=== PATIENT | male | born 1940 | race Caucasian/White ===

== ENCOUNTER → 2019-01-20 | Outpatient (CLI) | payer OTHER ==
[~2019-01-20] MED LIST: ASPIRIN81 M2 PO; CARISOPRODOL 3350 MG PO; CELESTONE30 MG/5 ML IJ; CIPRO500 MG PO; COLACE100 MG PO; COREG3.125 MG PO; COREG6.25 MG PO; COUMADIN 4 MG TA4 M1 PO; DILTIAZEM 24HR180 M1 PO; FLOMAX0.4 MG PO; HYDROCODONE-APA1 TA1 PO; KENALOG-4040 MG/ML IM; LEVOTHYROXIN0.137 M1 PO; LIPITOR10 MG PO; MAXZIDE-25 MG1 EACH PO; VALIUM5 MG PO; ZANTAC 150MG T150 MG PO
== END ==
LOC: RAD 11:19
DX: Z01.818 Encounter for other preprocedural examination (principal); J98.4 Other disorders of lung

== ENCOUNTER → 2019-05-10 | Outpatient (CLI) | payer OTHER | LOC: RAD 14:43 | DX: M47.22 Other spondylosis with radiculopathy, cervical region (principal); M43.13 Spondylolisthesis, cervicothoracic region; M53.82 Other specified dorsopathies, cervical region ==

== ENCOUNTER → 2020-07-08 | Outpatient (CLI) | payer OTHER | LOC: ULTRA 12:37 | PROVIDERS: ATTEND Neuromusculoskeletal Medicine & OMM | DX: M79.89 Other specified soft tissue disorders (principal) ==

== ENCOUNTER 2020-07-12 16:49 | Emergency (ER) | payer OTHER ==
[~2020-07-12] VITALS: Ht 177.8 cm; Wt 77.1 kg
[2020-07-12 18:40] LABS: HEMATOCRIT 33.7 % (42.0-52.0); MCH 31.1 pg (26.0-34.0); MCHC 32.8 g/dL (28.0-37.0); RBC 3.55 mil/uL (4.50-6.00); RDW 14.6 % (10.5-14.5); WBC 10.3 thou/uL (4.0-11.0)
[2020-07-12 18:51] LABS: CALCIUM 9.4 mg/dL (8.5-10.1); POTASSIUM 4.4 mmol/L (3.5-5.1)
[2020-07-12 18:54] LABS: APTT 37.8 Seconds (24.5-32.8); INR 1.5; PROTIME 14.9 Seconds (9.3-11.4)
[2020-07-12] MEDS ORDERED: PERCOCET 5-3251 EACH PO (20:11)
[2020-07-12] MEDS ORDERED: DULCOLAX STOOL100 M1 PO (20:11)
[2020-07-12 21:06] VITALS: BP 140/69
== END 2020-07-12 21:06 | disposition home or self-care (01) ==
LOC: ER 16:49
PROVIDERS: Emergency Medicine
DX: S80.11XA Contusion of right lower leg, initial encounter (principal); K21.9 Gastro-esophageal reflux disease without esophagitis; I48.91 Unspecified atrial fibrillation; I10 Essential (primary) hypertension; Z90.89 Acquired absence of other organs; Z79.899 Other long term (current) drug therapy; Z87.891 Personal history of nicotine dependence; Z88.0 Allergy status to penicillin; X58.XXXA Exposure to other specified factors, initial encounter; Y93.89 Activity, other specified; Y92.89 Other specified places as the place of occurrence of the external cause; Y99.8 Other external cause status

== ENCOUNTER 2021-09-15 14:34 | Inpatient (IN) | payer OTHER ==
[~2021-09-15] VITALS: Ht 177.8 cm; Wt 83.5 kg
[~2021-09-15 14:34] MED LIST changes: +DULCOLAX STOOL100 M1 PO; +PERCOCET 5-3251 EACH PO
[2021-09-15 14:40] VITALS: BP 111/66
[2021-09-15 15:00] LABS: MCHC 32.2 g/dL (28.0-37.0); MCV 93.3 fL (80.0-100.0); RBC 1.96 mil/uL (4.50-6.00); RDW 15.4 % (10.5-14.5); WBC 11.5 thou/uL (4.0-11.0)
[2021-09-15 15:02] LABS: HEMATOCRIT 18.3 % (42.0-52.0)
[2021-09-15 15:03] LABS: HEMOGLOBIN 5.9 gm/dL (14.0-18.0)
[2021-09-15 15:12] LABS: CALCIUM 8.5 mg/dL (8.5-10.1); CREATININE 1.3 mg/dL (0.7-1.3); POTASSIUM 4.5 mmol/L (3.5-5.1)
[2021-09-15] MEDS ORDERED: XARELTO20 MG PO (15:38)
[2021-09-15] MEDS ORDERED: SYNTHROID100 MC1 PO (15:39)
[2021-09-15] MEDS ORDERED: PROSCAR 5MG TABL5 M1 PO (15:40)
[2021-09-15] MEDS ORDERED: TRAMADOL 50 MG50 MG PO (15:41)
[2021-09-15 17:07] LABS: APTT 20.8 Seconds (24.5-32.8); INR 1.11
[2021-09-15 19:14] VITALS: BP 112/60
[2021-09-15 20:02] VITALS: BP 125/65; BP 132/57; BP 147/57
[2021-09-15 23:15] LABS: HEMATOCRIT 17.9 % (42.0-52.0); HEMOGLOBIN 5.8 gm/dL (14.0-18.0)
[2021-09-15 23:34] VITALS: BP 110/64; BP 119/60; BP 124/59; BP 125/62
[2021-09-16] VITALS (7 sets, daily range): BP systolic 103–123; BP diastolic 54–69
[2021-09-16 05:05] LABS: CALCIUM 7.8 mg/dL (8.5-10.1); MAGNESIUM 1.9 mg/dL (1.8-2.4); POTASSIUM 3.8 mmol/L (3.5-5.1)
[2021-09-16 05:21] LABS: HEMOGLOBIN 6.5 gm/dL (14.0-18.0); MCH 31.4 pg (26.0-34.0)
[2021-09-16 05:23] LABS: ABSOLUTE NEUTROPHILS 6.9 thou/uL (1.4-8.2); BASOPHILS 0.6 % (0.0-2.0); EOSINOPHILS 0.3 % (0.0-3.0); LYMPHOCYTES 9.9 % (24.0-44.0); MCHC 33.6 g/dL (28.0-37.0); MCV 93.4 fL (80.0-100.0); MONOCYTES 8.5 % (1.0-8.0); POLYS 80.7 % (36.0-66.0); RBC 2.08 mil/uL (4.50-6.00); RDW 15.2 % (10.5-14.5); WBC 8.6 thou/uL (4.0-11.0)
[2021-09-16 05:26] LABS: PLATELET COUNT 201 thou/uL (150-400)
[2021-09-16 05:27] LABS: HEMATOCRIT 19.4 % (42.0-52.0)
--- NOTE | 2021-09-16 07:52 | EKG ---
[place] [address] [place] [address] ELECTROCARDIOGRAM REPORT Name: ASIF GOLDBERG Room #: 170-2 ADM IN M.R.#: [id number] Admission: 09/15/21 Attend Phys: Sherice Cabrera Discharge: Date of : 40 Report #: [id number] [facility] ED Test Date: 2021-09-15 Test Time: 14:44:05 Pat Name: ASIF GOLDBERG Department: Room: 170 2 Gender: M Credit Risk Officer: [place] : 1940 Requested By: Bri Tarango Order Number: [id number] MD: Camilo Allison Measurements Intervals [place] Rate: 89 P: HI: QRS: 49 QRSD: 143 T: 257 QT: 398 QTc: 485 Interpretive Statements Atrial fibrillation Right bundle branch block ST depr, consider ischemia, inferior and lateral leads Compared to ECG 03/07/2014 10:51:20 ST depression is now present Electronically Signed On 09-16-2021 7:52:16 SERVICES EXECUTIVE by Camilo Allison [email or web address] <ELECTRONICALLY SIGNED> By: Camilo Allison MD, [facility] 09/16/21 [id number] Camilo Allison MD, [facility] /EPI
[2021-09-16 08:25] LABS: % SATURATION 10 % (20-39); IRON 29 ug/dL (65-175); TIBC 305 ug/dL (250-450)
[2021-09-16 09:10] LABS: FERRITIN 10 ng/mL (26-388)
--- NOTE | 2021-09-16 09:17 | NUR ---
Pt PO morning meds held due to patient being NPO at this time
--- NOTE | 2021-09-16 11:43 | NUR ---
Pt going to surgery at this time
--- NOTE | 2021-09-16 17:04 | NUR ---
[age] OLD MALE ADMITTED TO WEST ROOM 463. PT WAS BROUGHT INTO THE ER PER DUE CONSIPATION, WEAKNESS AND DARK TARY STOOLS. PT HAD EGD TODAY. VSS. PT DENIES PAIN/SOA AT THIS TIME. PT UP WITH STANDBY ASSIST. PT WUFE AT BEDSIDE. WILL CONTINUE TO MONITOR.
[2021-09-17] VITALS (8 sets, daily range): BP systolic 98–112; BP diastolic 53–68
--- NOTE | 2021-09-17 05:15 | NUR ---
PATIENT AOX4 MAKES NEEDS KNOWN. PATIENT AMBULATES TO THE BATHROOM WITH STEADY GAITS. PATIENT NEEDS MINIMUM ASSISTANCE WITH ADL, BED MOBILITY, TRANSFER AND TOILETING. FALL PRECAUTION IN PLACE.PATIENT IN BED ASLEEP AT THIS TIME BREATHING REGULAR AND UNLABOURED.
[2021-09-17 05:52] LABS: HEMOGLOBIN 6.6 gm/dL (14.0-18.0)
[2021-09-17 05:53] LABS: MCH 30.4 pg (26.0-34.0); MCHC 33.4 g/dL (28.0-37.0); MCV 90.8 fL (80.0-100.0); RBC 2.18 mil/uL (4.50-6.00); RDW 17.2 % (10.5-14.5); WBC 7.6 thou/uL (4.0-11.0)
[2021-09-17 05:58] LABS: HEMATOCRIT 19.8 % (42.0-52.0)
[2021-09-17 06:21] LABS: CALCIUM 7.9 mg/dL (8.5-10.1); POTASSIUM 3.6 mmol/L (3.5-5.1)
--- NOTE | 2021-09-17 11:38 | NUR ---
HGB 6.6, ORDERS ARE TO INFUSE BLOOD UNTIL REACHES 7.0 DR. CHRISTOPHER HAD CALLED TO SEE IF PATIENT WAS RECIEVING BLOOD. AT 0940 BLOOD WAS STARTED, PATIENT MONITORED FOR THE FIRST 15 MINUTES WITH NO REACTIONS. VS CHARTED.
--- NOTE | 2021-09-17 14:47 | NUR ---
PT ADMITTED RELATED TO SYMPTOMATIC ANEMIA, ANTICOAGULATED, GI BLEED. CM REVIEWED CHART AND SPOKE WITH CARE TEAM. CM MET WITH PT AND SPOUSE AT BEDSIDE THIS DAY. PT APPEARED TO BE A&O X4. CM ROLE INTRODUCED. 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 PT INDICATED NO PRIOR USE OF ASSISTIVE DEVICES. THEY HAVE A CANE AND A FWW IN THE HOME. PT INDICATED NO HH HX. PT HAD BEEN A PT OF DR. KOROMA AND IS NOW SEEING STATION INSPECTOR COMFORT FRIED. PT GOES TO [facility] FOR ALL OTHER CARES. PT INDICATED HE PLANS TO RETURN HOME ONCE MEDICALLY STABLE. PT GO 1 UNIT PRBC THIS DAY. CM FOLLOWING REGARDING DC PLANNING.
[2021-09-17 17:31] LABS: HEMATOCRIT 24.3 % (42.0-52.0); HEMOGLOBIN 7.9 gm/dL (14.0-18.0); MCH 29.6 pg (26.0-34.0); MCHC 32.5 g/dL (28.0-37.0); RBC 2.67 mil/uL (4.50-6.00); WBC 8.7 thou/uL (4.0-11.0)
[2021-09-18 01:16] VITALS: BP 92/55
--- NOTE | 2021-09-18 05:00 | NUR ---
Pt. rested quietly during the night when checked on during frequent rounds. He requested something to help him sleep last evening. Fatemeh NOONAN called and notified with new orders (see cpoe). Pt. ambulated to the bathroom with mini- mal assistance. Bed alarm is on.
[2021-09-18 05:29] VITALS: BP 111/61
[2021-09-18 06:24] LABS: HEMATOCRIT 23.3 % (42.0-52.0); HEMOGLOBIN 7.8 gm/dL (14.0-18.0); MCH 30.2 pg (26.0-34.0); MCHC 33.5 g/dL (28.0-37.0); MCV 90.2 fL (80.0-100.0); RBC 2.58 mil/uL (4.50-6.00); RDW 17.2 % (10.5-14.5); WBC 6.2 thou/uL (4.0-11.0)
[2021-09-18 06:42] LABS: POTASSIUM 3.5 mmol/L (3.5-5.1)
[2021-09-18 07:52] VITALS: BP 127/73
--- NOTE | 2021-09-18 15:21 | NUR ---
CARE TEAM INDICATING THAT PT IS PROGRESSING TOWARD GOAL OF DISCHARGING HOME. PT AND OT ORDERED TO ASSESS PT THIS DAY. CARE TEAM WERE INDICATING PROBABLE DC BACK HOME TOMORROW. CM FOLLOWOWING REGARDING DC PLANNING.
[2021-09-18 16:33] VITALS: BP 94/53
[2021-09-18 19:34] VITALS: BP 128/78
[2021-09-19 00:23] VITALS: BP 107/52
--- NOTE | 2021-09-19 05:01 | NUR ---
Pt. rested quietly at intervals during the night when checked on during frequent rounds. Meds given for sleep and c/o headache (see emar).
[2021-09-19 05:06] VITALS: BP 105/67
[2021-09-19 06:17] LABS: HEMATOCRIT 23.2 % (42.0-52.0); HEMOGLOBIN 7.6 gm/dL (14.0-18.0); MCH 29.9 pg (26.0-34.0); MCHC 32.9 g/dL (28.0-37.0); MCV 91.1 fL (80.0-100.0); RBC 2.54 mil/uL (4.50-6.00); RDW 17.3 % (10.5-14.5); WBC 6.5 thou/uL (4.0-11.0)
[2021-09-19 08:03] VITALS: BP 94/52
[2021-09-19 12:09] VITALS: BP 107/75
[2021-09-19 12:14] VITALS: BP 139/63
[2021-09-19 14:56] VITALS: BP 139/63
== END 2021-09-19 16:16 | disposition home or self-care (01) | DRG 812 ==
LOC: ER 14:34 → 4W 17:38 → EROBS 17:38 → 4W 09-16 13:34
PROVIDERS: Emergency Medicine; Internal Medicine; Nurse Practitioner; ADMIT Hospitalist; ATTEND Hospitalist
PROC: 0W3P8ZZ Control Bleeding in Gastrointestinal Tract, Via Natural or Artificial Opening Endoscopic (ICD-10-PCS; principal; 2021-09-16)
PROC: 30233N1 Transfusion of Nonautologous Red Blood Cells into Peripheral Vein, Percutaneous Approach (ICD-10-PCS; principal; 2021-09-16)
PROC: 0DJ08ZZ Inspection of Upper Intestinal Tract, Via Natural or Artificial Opening Endoscopic (ICD-10-PCS; 2021-09-19)
DX: D50.9 Iron deficiency anemia, unspecified (principal); K92.2 Gastrointestinal hemorrhage, unspecified; Z20.822 Contact with and (suspected) exposure to COVID-19; I48.91 Unspecified atrial fibrillation; K21.9 Gastro-esophageal reflux disease without esophagitis; E53.8 Deficiency of other specified B group vitamins; N40.0 Benign prostatic hyperplasia without lower urinary tract symptoms; E03.9 Hypothyroidism, unspecified; R53.81 Other malaise; Z86.73 Personal history of transient ischemic attack (TIA), and cerebral infarction without residual deficits; Z98.52 Vasectomy status; Z98.42 Cataract extraction status, left eye; Z98.41 Cataract extraction status, right eye; Z88.0 Allergy status to penicillin; Z87.891 Personal history of nicotine dependence; Z79.01 Long term (current) use of anticoagulants
CPT/HCPCS: 10045; 62110; 62900; 70005